=== PATIENT | male | born 1995 | race Caucasian/White ===

== ENCOUNTER 2020-04-06 14:59 | Emergency (ER) | payer BC ==
[2020-04-06] MEDS ORDERED: DEXAMETHASONE SOD PHOS INJ 10 MG/1 ML VIAL IV ONE (16:23)
[2020-04-06] MEDS ORDERED: KETOROLAC TROMETHAMINE 60 MG/2 ML SDV IM ONE (16:23)
[2020-04-06] MEDS ORDERED: OXYCODONE-ACETAMINOPHEN 5-325 MG TABLET PO ONE (16:24)
--- NOTE | 2020-04-06 16:25 | ER Document Report ---
ED Medical Screen (RME) - General Chief Complaint: Low Back Pain Stated Complaint: BACK PAIN Time Seen by Provider: 04/06/20 16:13 Primary Care Provider: YOHAN WELLS MD [Primary Care Provider] - Follow up as needed Mode of Arrival: Wheelchair Information source: Patient Notes: Patient is a 24-year-old male continues to complain of low back pain voiding flank left side. Patient states that he started with back pain approximately 1 month ago. He has been going to the chiropractor and was last adjusted yesterday. Patient states he was probably started out on his right side with radiation on the right side however that got much better he went to the chiropractor yesterday and woke up this morning with left-sided pain radiating down the left leg numbness. Patient denies any loss of urine or stool. He is ambulatory but states it is severe pain when he tries to attempt to walk. Denies any other medical problems currently takes no medication. Patient does not smoke or drink drugs. Patient works at a [employer]. He denies any known traumatic events. Patient examination: Patient is a well-nourished well-developed obese 24-year-old male no apparent distress but appears somewhat uncomfortable. Cardiac: Patient displays a regular rate and rhythm on monitor of 92 bpm no murmur auscultated. Temp 98.4, blood pressure 146/83 Lungs: Lateral breath sounds increased clear auscultation no rhonchi rales or wheeze. Abdomen: Bowel sounds present all quads nontender to palpate. Lower extremities: In a sitting position patient displays good sensation bilateral lower extremities from the inner ankles and feet to the groin as he does from the outer ankles to the feet and ankles to the hips. Patient has good strength in all planes in the sitting position. DTRs unable to perform since patient is so vague and sitting in a wheelchair. I have greeted and performed a rapid initial assessment of this patient. A comprehensive ED assessment and evaluation of the patient, analysis of test results and completion of the medical decision making process will be conducted by additional ED providers. Dictation of this chart was performed using voice recognition software; therefore, there may be some unintended grammatical errors. - Related Data Allergies/Adverse Reactions: No Known Allergies Allergy (Verified 04/06/20 16:11) Past Medical History - Social History Chew tobacco use (# tins/day): No Frequency of alcohol use: None Drug Abuse: None Past Surgical History: Reports: Hx Orthopedic Surgery Physical Exam - Vital signs Vitals: Temp Pulse Resp BP Pulse Ox 98.4 F 92 18 146/83 H 95 04/06/20 15:08 04/06/20 15:08 04/06/20 15:08 04/06/20 15:08 04/06/20 15:08 Course - Vital Signs Vital signs: Temp Pulse Resp BP Pulse Ox 98.4 F 92 18 146/83 H 95 04/06/20 15:08 04/06/20 15:08 04/06/20 15:08 04/06/20 15:08 04/06/20 15:08 Doctor's Discharge - Discharge Referrals: YOHAN WELLS MD [Primary Care Provider] - Follow up as needed
[2020-04-06] MEDS ORDERED: DEXAMETHASONE SOD PHOS INJ 10 MG/1 ML VIAL IM ONE (16:33)
--- NOTE | 2020-04-06 17:30 | RADIOLOGY REPORT (SQ) ---
EXAM DESCRIPTION: L SPINE WHOLE IMAGES COMPLETED DATE/TIME: 04/06/2020 4:40 pm REASON FOR STUDY: Low back pain with radiation left leg COMPARISON: None. NUMBER OF VIEWS: Five views including obliques. TECHNIQUE: AP, lateral, oblique, and sacral radiographic images acquired of the lumbar spine. LIMITATIONS: None. FINDINGS: MINERALIZATION: Normal. SEGMENTATION: Normal. No transitional anatomy. ALIGNMENT: Normal. VERTEBRAE: Maintained height. No fracture or worrisome bone lesion. DISCS: There is mild disc narrowing at L3-4 and L4-5. POSTERIOR ELEMENTS: Pedicles and facets are intact. No pars defect or posterior arch defects. HARDWARE: None in the spine. PARASPINAL SOFT TISSUES: Normal. PELVIS: Intact as visualized. No fractures or worrisome bone lesions. SI joints intact. OTHER: No other significant finding. IMPRESSION: Mild disc narrowing at 2 levels as described. TECHNICAL DOCUMENTATION: JOB ID: [id number] 2010 [employer]- All Rights Reserved Reading location - IP/workstation name: [email or web address]
--- NOTE | 2020-04-06 18:03 | ER Document Report ---
ED Neck/Back Problem - General Chief Complaint: Low Back Pain Stated Complaint: BACK PAIN Time Seen by Provider: 04/06/20 16:13 Primary Care Provider: YOHAN WELLS MD [Primary Care Provider] - Follow up as needed Mode of Arrival: Wheelchair Information source: Patient Notes: Patient is a 24-year-old male who I emergently triaged. Patient has had low back pain with right-sided sciatica over the past month. Patient has been seeing a chiropractor and states that actually his right-sided sciatica has dissipated. He does state that he was adjusted yesterday by the chiropractor and that he woke up this morning with now left-sided sciatic pain that is making it difficult for him to bear weight and ambulate. Patient denies any loss of urine or stool. He denies any sensational losses. Patient denies any known traumatic events. - HPI Patient complains to provider of: Pain, Lower back. No: Injury Onset: This morning Onset: Gradual Timing: Constant, Still present Quality of pain: Achy, Sharp, Throbbing Severity: Moderate Pain Level: 4 Recent injury: No Associated symptoms: Radiation to leg. denies: Abdominal pain, Constipation, Incontinence, Unable to urinate Exacerbated by: Other - Walking Relieved by: Nothing Similar symptoms previously: Yes Recently seen / treated by doctor: Yes - Related Data Allergies/Adverse Reactions: No Known Allergies Allergy (Verified 04/06/20 16:11) Past Medical History - General Information source: Patient - Social History Smoking Status: Never Smoker Chew tobacco use (# tins/day): No Frequency of alcohol use: None Drug Abuse: None Lives with: Family Family History: Reviewed & Not Pertinent Past Surgical History: Reports: Hx Orthopedic Surgery Review of Systems - Review of Systems Constitutional: No symptoms reported EENT: No symptoms reported Cardiovascular: No symptoms reported Respiratory: No symptoms reported Gastrointestinal: No symptoms reported Genitourinary: No symptoms reported Male Genitourinary: No symptoms reported Musculoskeletal: See HPI, Back pain Skin: No symptoms reported Hematologic/Lymphatic: No symptoms reported Neurological/Psychological: No symptoms reported -: Yes All other systems reviewed and negative Physical Exam - Vital signs Vitals: Temp Pulse Resp BP Pulse Ox 98.4 F 92 18 146/83 H 95 04/06/20 15:08 04/06/20 15:08 04/06/20 15:08 04/06/20 15:08 04/06/20 15:08 Interpretation: Hypertensive - Notes Notes: PHYSICAL EXAMINATION: GENERAL: Patient is a well-nourished well-developed 24-year-old male no apparent distress on examination today. HEAD: Atraumatic, normocephalic. EYES: Pupils equal round and reactive to light, extraocular movements intact, sclera anicteric, conjunctiva are normal. ENT: Nares patent, oropharynx clear without exudates. Moist mucous membranes. NECK: Normal range of motion, supple without lymphadenopathy LUNGS: Breath sounds clear to auscultation bilaterally and equal. No wheezes rales or rhonchi. HEART: Regular rate and rhythm without murmurs ABDOMEN: Soft, nontender, nondistended abdomen. No guarding, no rebound. No masses appreciated. Musculoskeletal: Examination patient's area concern is his lumbar spine and left buttocks. Patient displays good DTRs bilateral lower extremities. Patient has good strength against resistance bilateral lower extremities. Patient has good sensation from the inner ankles and feet to the groin as he does from the outer ankles and feet to the hips. No sign of saddle paresthesia. Patient ambulates without any sign of foot drop. NEUROLOGICAL: Normal speech, normal gait. Normal sensory, motor exams PSYCH: Normal mood, normal affect. SKIN: Warm, Dry, normal turgor, no rashes or lesions noted. Course - Re-evaluation Re-evalutation: 04/06/20 18:24 Patient did get some relief with the medications. X-ray was negative for any findings. At this time with patient not having neurologic deficits no foot drop and notes no sign of saddle paresthesia no loss of urine or stool feels justifiable to go ahead and the patient go home on some steroids muscle relaxers. 04/06/20 18:24 04/06/20 18:30 Just prior to discharge also patient informed me that when he moved him back with his parents he put his firm mattress in storage and he is sleeping on a very soft bed currently and wonders if that could be contributing to his low back pain. - Vital Signs Vital signs: Temp Pulse Resp BP Pulse Ox 98.4 F 92 18 146/83 H 95 04/06/20 15:08 04/06/20 15:08 04/06/20 15:08 04/06/20 15:08 04/06/20 15:08 - Laboratory Results Laboratory Results Interpreted: 04/06/20 18:01 Urine Protein 30 H Urine Ketones TRACE H Critical Laboratory Results Reviewed: No Critical Results - no critical values - Radiology Results Critical Radiology Results Reviewed: No Critical Results - No lab values abnormal Discharge - Discharge Clinical Impression: Sciatica Qualifiers: Laterality: left Qualified Code(s): M54.32 - Sciatica, left side Condition: Stable Disposition: HOME, SELF-CARE Instructions: Ice Packs ([facility]), Low Back Pain ([facility]), Warm Packs ([facility]), Muscle Strain ([facility]), Pain Medication Injection ([facility]), Sciatica ([facility]) Additional Instructions: Home and rest. As we discussed you may try going back and using your firm mattress that you are used to rather than a soft mattress. I am putting you on a steroid taper had a muscle relaxer that should help relieve the discomfort and pain. I would give you the name of the orthopedist on-call tonight you may want to contact her office if the pain does not get better over the next few days. Also as we discussed if you start having difficulty lifting your foot or loss of urine or stool you to return to ER at once for reevaluation. Prescriptions: Prednisone 10 mg PO ASDIR PRN #1 tab.ds.pk PRN Reason: Methocarbamol [Robaxin 750 mg Tablet] 750 mg PO ASDIR PRN #40 tablet PRN Reason: Forms: Elevated Blood Pressure, Return to Work Referrals: YOHAN WELLS MD [Primary Care Provider] - Follow up as needed NOÉ WALDEN MD [ACTIVE STAFF] - Follow up as needed
[2020-04-06 18:16] LABS: APPEARANCE,URINE CLEAR; BILIRUBIN,URINE NEGATIVE (NEGATIVE); COLOR,URINE YELLOW; GLUCOSE, URINE NEGATIVE (NEGATIVE); KETONES,URINE TRACE mg/dL (NEGATIVE); LEUKOCYTE ESTERASE,URINE NEGATIVE (NEGATIVE); NITRITE,URINE NEGATIVE (NEGATIVE); PROTEIN,URINE 30 mg/dL (NEGATIVE); URINE SPECIFIC GRAVITY 1.028; UROBILINOGEN,URINE NEGATIVE mg/dL (<2.0)
[2020-04-06 18:35] VITALS: BP 136/74
== END 2020-04-06 18:33 | disposition home or self-care (01) ==
LOC: ER 14:59
DX: M54.42 Lumbago with sciatica, left side (principal)
CPT/HCPCS: 99284; 96372; 81001; 72110; J1885; J1100